=== PATIENT | male | born 1995 | race African-American/Black ===

== ENCOUNTER 2017-03-11 03:05 | Emergency (ER) | payer BC ==
[~2017-03-11] VITALS: Ht 160 cm; Wt 57.4 kg
[2017-03-11 03:08] VITALS: TEMP 36.9; Ht 160 cm; Wt 57.4 kg
[2017-03-11] MEDS ORDERED: GUAIFENESIN 600 MG TABCR PO STA (03:58)
[2017-03-11] MEDS ORDERED: ACETAMINOPHEN 500 MG TAB PO STA (03:58)
[2017-03-11] MEDS ORDERED: BENZONATATE 100MG CAP PO ONE (04:00)
[2017-03-11] MEDS ORDERED: CETI10TA84 PO (04:04)
[2017-03-11] MEDS ORDERED: FLUT0.15 NAE (04:04)
--- NOTE | 2017-03-11 04:29 | EMERGENCY ROOM VISIT NOTE ---
History Report prepared by Nickie: Bentley Rivera Under the Supervision of: Dr. Moira Schwarz D.O. First contact with patient: 03:22 Chief Complaint: FLU LIKE SX Stated Complaint: COUGHING,SNEEZING,SHIVERING/SWEATING,VOMITING History of Present Illness The patient is a 21 year old male who presents to the Emergency Room with complaints of flu-like symptoms that began a couple of days ago. About two days ago, the patient began to experience a productive cough, rhinorrhea, sore throat , and sinus congestion. He feels mildly short of breath because of these symptoms. His condition then progressed to nausea, vomiting, and a loss of appetite. He has been trying to keep up with his fluid intake with water, Gatorade, and juice. He denies any ear pain, neck pain, or abdominal pain. Earlier today, he had a headache which has now resolved. He notes one episode of loose stool without any blood present. He is intermittently lightheaded as well. He denies any rashes, swelling, or abnormal urinary symptoms. He notes while he is sleeping he feels chilled with shivering. He denies any sick contacts and did not receive an influenza vaccine. He has been taking DayQuil and NyQuil in attempt to manage his condition. He only takes Zyrtec and Flonase daily. Source of History: patient Onset: two days ago Position: other (Global) Symptom Intensity: moderate Quality: other (Flu-like symptoms) Timing: constant Associated Symptoms: + chills, + sorethroat, + cough, + SOB, + nausea, + vomiting, + diarrhea, No abdominal pain, No melena, No hematochezia, No urinary symptoms, No rash Review of Systems See HPI for pertinent positives & negatives. A total of 10 systems reviewed and were otherwise negative. Past Medical & Surgical Medical Problems: (1) Seasonal allergies Family History Patient reports no known family medical history. Social History Smoking Status: Current Some Day Smoker Smokeless Tobacco Use: No Drug Use: none Marital Status: single Occupation Status: student Current/Historical Medications Scheduled Cetirizine (Zyrtec), 10 MG PO DAILY Fluticasone Propionate (Nasal) (Flonase Allergy Relief), 2 SPRAYS CHERIE DAILY Allergies Coded Allergies: Nut Tree (Verified Allergy, Severe, throat closes, 03/11/17) Physical Exam Vital Signs Date Time Temp Pulse Resp B/P (MAP) Pulse Ox O2 Delivery O2 Flow Rate FiO2 03/11/17 05:53 70 18 109/72 99 Room Air 03/11/17 03:08 36.9 90 18 128/67 98 Room Air Physical Exam GENERAL: alert, well appearing, well nourished, no distress, non-toxic EYE EXAM: normal conjunctiva, PERRL and EOM's grossly intact OROPHARYNX: no exudate, no erythema, lips, buccal mucosa, and tongue normal and mucous membranes are moist NECK: supple, no nuchal rigidity, no adenopathy, non-tender LUNGS: Clear to auscultation. Normal chest wall mechanics HEART: no murmurs, S1 normal and S2 normal ABDOMEN: abdomen soft, non-tender, normo-active bowel sounds, no masses, no rebound or guarding. BACK: Back is symmetrical on inspection and there is no deformity, no midline tenderness, no CVA tenderness. SKIN: no rashes and no bruising UPPER EXTREMITIES: upper extremities are grossly normal. LOWER EXTREMITIES: No pitting edema. NEURO EXAM: Normal sensorium, cranial nerves II-XII grossly intact, normal speech, no gross weakness of arms, no gross weakness of legs. Medical Decision & Procedures ER Provider Diagnostic Interpretation: Radiology results have been interpreted by the radiologist and reviewed by me. CHEST 2 VIEWS ROUTINE CLINICAL HISTORY: cough, fever dyspnea COMPARISON STUDY: No previous studies for comparison. FINDINGS: The bones soft tissues and hemidiaphragms are normal. The cardiomediastinal silhouette is normal. The lungs are clear. The pulmonary vasculature is normal. IMPRESSION: Negative chest. The above report was generated using voice recognition software. It may contain grammatical, syntax or spelling errors. Electronically signed by: Ernesto Mata M.D. 03/11/2017 6:32 AM Dictated Date/Time: 03/11/2017 6:32 AM Laboratory Results Test 03/11/17 04:04 Influenza Type A Antigen Neg for Influ A (NEG) Influenza Type B Antigen Neg for Influ B (NEG) Laboratory results per my review. Medications Administered Medications (Trade) Dose Ordered Sig/Ni Route Start Time Stop Time Status Last Admin Dose Admin Acetaminophen (Tylenol Tab) 1,000 mg NOW STAT PO 03/11/17 03:58 03/11/17 04:01 DC 03/11/17 04:05 1,000 MG Benzonatate (Tessalon Perles Cap) 100 mg NOW ONCE PO 03/11/17 04:00 03/11/17 04:01 DC 03/11/17 04:05 100 MG Guaifenesin (Mucinex Contr Rel Tab) 600 mg NOW STAT PO 03/11/17 03:58 03/11/17 04:01 DC 03/11/17 04:26 600 MG ED Course 0322: The patient was evaluated in room A10. A complete history and physical exam was performed. 0358: Ordered Guaifenesin 600 mg PO, Tylenol Tab 1000 mg PO 0400: Ordered Benzonatate 100 mg PO 0650: Upon reevaluation, the patient is feeling better. I discussed the findings and the treatment plan with the patient. He verbalizes agreement and understanding. He was discharged home. Medical Decision Differential diagnosis: Etiologies such as viral syndrome, otitis, pharyngitis, pneumonia, influenza, meningitis, urinary tract infection, sepsis, bacteremia, as well as others were entertained. Discussed with patient results, usual course of a upper respiratory infection and viral syndrome, use of [id number] medications, hydration and diet, symptoms to watch and return for, he verbalized understanding was agreeable with plan. Doubt bacteremia/sepsis, doubt meningitis, did not feel patient warranted additional labs or imaging at this time. Doubt deep space infection, mastoiditis, strep pharyngitis, occult pneumonia. No other GI or symptoms. Medication Reconcilliation Current Medication List: was personally reviewed by me Blood Pressure Screening Patient's blood pressure: Normal blood pressure Blood pressure disposition: Did not require urgent referral Impression Primary Impression: Influenza-like symptoms Additional Impression: Upper respiratory infection Scribe Attestation The scribe's documentation has been prepared under my direction and personally reviewed by me in its entirety. I confirm that the note above accurately reflects all work, treatment, procedures, and medical decision making performed by me. Departure Information Dispostion Home / Self-Care Referrals No Doctor, Assigned (PCP) Forms HOME CARE DOCUMENTATION FORM, IMPORTANT VISIT INFORMATION Patient Instructions My [facility] Additional Instructions Please drink plenty of liquids, primarily water, to stay well-hydrated. You may use Tylenol and ibuprofen as needed for pain and fevers. Do not take ibuprofen and an empty stomach. You may use the additional cough pill as needed. You may also continue use [id number] cough and cold medications. You may not have a normal appetite for couple of days, this is to be expected when your sick. If you have any worsening trouble breathing, or coughing up blood, have recurrent vomiting, diarrhea, or fevers do not respond to Tylenol or ibuprofen, you develop a rash, chest pain, or you have any other new concerns , please return the emergency room. Problem Qualifiers Additional Impression: Upper respiratory infection URI type: unspecified URI Qualified Codes: J06.9 - Acute upper respiratory infection, unspecified
[2017-03-11 04:33] LABS: INFLUENZA B ANTIGEN Neg for Influ B (NEG)
[2017-03-11 05:53] VITALS: BP 109/72; PULSE 70; O2SAT 99
--- NOTE | 2017-03-11 06:34 | DIAGNOSTIC IMAGING REPORT ---
CHEST 2 VIEWS ROUTINE CLINICAL HISTORY: cough, fever dyspnea COMPARISON STUDY: No previous studies for comparison. FINDINGS: The bones soft tissues and hemidiaphragms are normal. The cardiomediastinal silhouette is normal. The lungs are clear. The pulmonary vasculature is normal. IMPRESSION: Negative chest. The above report was generated using voice recognition software. It may contain grammatical, syntax or spelling errors. Electronically signed by: Ernesto Mata M.D. 03/11/2017 6:32 AM Dictated Date/Time: 03/11/2017 6:32 AM
== END 2017-03-11 05:52 | disposition home or self-care (01) ==
LOC: C.EDB 03:08 → C.EDA 05:52
DX: J06.9 Acute upper respiratory infection, unspecified (principal); R68.89 Other general symptoms and signs; J30.2 Other seasonal allergic rhinitis; F17.210 Nicotine dependence, cigarettes, uncomplicated; Z79.899 Other long term (current) drug therapy